=== PATIENT | female | born 1990 | race Caucasian/White ===

== ENCOUNTER 2021-02-28 23:56 | Emergency (ER) | payer MEDICAID ==
[2021-03-01] MEDS ORDERED: NORCO 5/325 MG ONE ×2 (00:14→01:36)
[2021-03-01] MEDS ORDERED: solu-MEDROL ONE ×2 (00:14→00:15)
[2021-03-01] MEDS ORDERED: Sterile H2O 10 ml IJ ONE (00:15)
[2021-03-01 00:20] VITALS: O2SAT 97
[2021-03-01] MEDS ORDERED: solu-MEDROL 125 MG, Sterile H2O 10 ml 2 ML IM ONE ×2 (00:25)
[2021-03-01] MEDS ORDERED: NORCO 5/325 MG PO ONE ×2 (00:25→00:26)
--- NOTE | 2021-03-01 00:37 | ERPHSYRPT ---
- History of Present Illness Time Seen by Provider: 03/01/21 00:15 Source: patient, family Exam Limitations: no limitations Patient Subjective Stated Complaint: pt states while taking a walk woody platt slipped in mud and hurt her back. states she has a hx of sciatica, this is much worse than her normal pain Triage Nursing Assessment: pt alert and oriented, answers questions approp. pt back per wheelchair and transfers to stretcher with assist of 1. pt reports tenderness to lower back on lt side. states pain radiates down to the lt knee. Physician History: This is a 30-year-old obese white female patient of Dr. Amparo Quiles who also has a history of hypertension slipped and fell this evening while walking. Patient has a history of sciatica and now she feels as though that fall aggravated it. Her pain is in the lower lumbar region more on the left than the right. Patient states she cannot take steroids and [place] pain pills. Patient has no headache. She has no head injury. She has no neck pain Timing/Duration: today Method of Injury: fall Quality: radiating, sharp Back Pain Location: lumbar spine, paraspinous muscles Back Pain Radiation: buttocks Severity of Pain-Max: moderate Severity of Pain-Current: moderate Modifying Factors: Improves With: movement Associated Symptoms: lower back pain, No urinary incontinence, No loss of bowel control, No numbness in legs/feet Previous symptoms: same symptoms as today Allergies/Adverse Reactions: tramadol Allergy (Intermediate, Verified 03/01/21 00:17) Tightness of Throat and vomiting codeine Allergy (Mild, Verified 03/01/21 00:17) Nausea and Vomiting ibuprofen [From Motrin] Allergy (Mild, Verified 03/01/21 00:17) Stomach Cramps vomiting as well ketorolac [From Toradol] Adverse Reaction (Mild, Verified 03/01/21 00:17) Nausea Home Medications: Escitalopram Oxalate 10 mg [Lexapro 10 MG] 10 mg PO DAILY 03/01/21 [History] Metoprolol Succinate 100 mg [Toprol Xl 100 MG] 100 mg PO DAILY 03/01/21 [History] clonazePAM [Klonopin] 0.5 mg PO BIDPRN PRN 03/01/21 [History] Hx Tetanus, Diphtheria Vaccination/Date Given: Yes Hx Influenza Vaccination/Date Given: No Hx Pneumococcal Vaccination/Date Given: No Immunizations Up to Date: Yes Travel Risk - International Travel Have you traveled outside of the country in past 3 weeks: No - Coronavirus Screening Are you exhibiting any of the following symptoms?: No Close contact with a COVID-19 positive Pt in past 14-21 Days: No - Vaccine Status Have you recieved a Covid-19 vaccination: No - Review of Systems Constitutional: No Symptoms Eyes: No Symptoms Ears, Nose, & Throat: No Symptoms Respiratory: No Symptoms Cardiac: No Symptoms Abdominal/Gastrointestinal: No Symptoms Genitourinary Symptoms: No Symptoms Musculoskeletal: Back Pain, Fall, Injury Skin: No Symptoms Neurological: No Symptoms Psychological: No Symptoms Endocrine: No Symptoms - Past Medical History Pertinent Past Medical History: Yes Neurological History: Migraines ENT History: No Pertinent History Cardiac History: No Pertinent History Respiratory History: No Pertinent History Endocrine Medical History: No Pertinent History Musculoskeletal History: No Pertinent History GI Medical History: GERD History: No Pertinent History Psycho-Social History: Anxiety, Bipolar, Depression, Panic Disorder Female Reproductive Disorders: No Pertinent History Other Medical History: hx of constipation, ovaraian cyst, dx bipolar at age 14 - Past Surgical History Past Surgical History: Yes Neuro Surgical History: No Pertinent History Cardiac: No Pertinent History Respiratory: No Pertinent History Gastrointestinal: Appendectomy Genitourinary: No Pertinent History Musculoskeletal: No Pertinent History Female Surgical History: Tubal Ligation, Other Other Surgical History: CYST REMOVED FROM OVARY WHEN HAD THE APPENDIX REMOVED, Dental procedures - Social History Smoking Status: Current every day smoker How long have you smoked: 14yrs Exposure to second hand smoke: Yes Drug Use: none Patient Lives Alone: No - Female History Hx Last Menstrual Period: 1 month Hx Now: No - Nursing Vital Signs Nursing Vital Signs: Initial Vital Signs Temperature 98.2 F 03/01/21 00:06 Pulse Rate 79 03/01/21 00:06 Respiratory Rate 18 03/01/21 00:06 Blood Pressure 155/95 03/01/21 00:06 O2 Sat by Pulse Oximetry 97 03/01/21 00:06 Pain Scale Pain Intensity [Lower Back] 9 Pain Intensity 9 - Physical Exam General Appearance: no apparent distress, alert, anxiety, obese Eye Exam: PERRL/EOMI, eyes nml inspection Ears, Nose, Throat Exam: normal ENT inspection, moist mucous membranes Neck Exam: normal inspection, non-tender, supple, full range of motion Respiratory Exam: normal breath sounds, lungs clear, airway intact, No chest tenderness, No respiratory distress Cardiovascular Exam: regular rate/rhythm, normal heart sounds, normal peripheral pulses Gastrointestinal Exam: soft, normal bowel sounds, No tenderness Pelvic Exam: not done Rectal Exam: not done Back Exam: normal inspection, decreased range of motion, muscle spasm, No CVA tenderness, No vertebral tenderness Extremity Exam: normal inspection, normal range of motion, pelvis stable Neurologic Exam: alert, oriented x 3, cooperative, 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, normal mood/affect, sensation nml Skin Exam: normal color, warm, dry Lymphatic Exam: No adenopathy SpO2 Interpretation: normal SpO2: 97 O2 Delivery: Room Air - Course Nursing assessment & vital signs reviewed: Yes Ordered Tests: Active Orders 24 hr Category Date Time Status LUMBAR LIMITED (2 OR 3 VIEWS) Stat Exams 03/01/21 00:24 Ordered Medication Summary Discontinued Medications Generic Name Dose Route Start Last Admin Trade Name Martha PRN Reason Stop Dose Admin Hydrocodone Bitart/Acetaminophen Confirm 03/01/21 00:14 [place] 5/325 Mg Administered 03/01/21 00:15 Dose 1 tab .ROUTE .STK-MED ONE Hydrocodone Bitart/Acetaminophen 2 tab 03/01/21 00:25 [place] 5/325 Mg PO 03/01/21 00:26 SENT HOME W/ PATIENT ONE Hydrocodone Bitart/Acetaminophen 1 tab 03/01/21 00:26 03/01/21 00:29 [place] 5/325 Mg PO 03/01/21 00:27 1 tab STAT ONE Administration Methylprednisolone Sodium 0 mg 03/01/21 00:25 03/01/21 00:29 Succinate 125 mg/ Sterile IM 03/01/21 00:26 125 mg Water 2 ml STAT ONE Administration Methylprednisolone Sodium Succinate Confirm 03/01/21 00:14 Solu-Medrol Administered 03/01/21 00:15 Dose 125 mg .ROUTE .STK-MED ONE Methylprednisolone Sodium Succinate Confirm 03/01/21 00:15 Solu-Medrol Administered 03/01/21 00:16 Dose 125 mg .ROUTE .STK-MED ONE Sterile Water Confirm 03/01/21 00:15 Sterile H2o 10 Ml Administered 03/01/21 00:16 Dose 10 ml IJ .STK-MED ONE - Progress Progress: improved, pain not gone completely Progress Note: 03/01/21 00:54 X-ray of the lumbar spine shows no acute fracture and no subluxation. Counseled pt/family regarding: diagnosis, need for follow-up, rad results - Departure Departure Disposition: Home Clinical Impression: Fall with no significant injury, Back pain Condition: Stable Critical Care Time: No Referrals: AMPARO QUILES [Primary Care Provider] - Prescriptions: Prednisone 10 mg [Deltasone 10 mg] 10 mg PO TID #12 tablet
[2021-03-01 01:17] VITALS: BP 135/67; PULSE 82
--- NOTE | 2021-03-01 08:48 | XRAY ---
Indication: Pain following fall. Comparison: None 3 view lumbar spine demonstrates 5 lumbar segments with vertebral body heights/disc spaces maintained. No bony, articular, or soft tissue abnormalities.
== END 2021-03-01 01:50 | disposition home or self-care (01) ==
LOC: ED 23:56
DX: M54.9 Dorsalgia, unspecified (principal); W01.0XXA Fall on same level from slipping, tripping and stumbling without subsequent striking against object, initial encounter; Y93.01 Activity, walking, marching and hiking; Y92.89 Other specified places as the place of occurrence of the external cause
CPT/HCPCS: 72100; 96372; 99283; J2930; A9270-GY